=== PATIENT | female | born 1970 | race Caucasian/White ===

== ENCOUNTER 2017-12-03 20:25 | Emergency (ER) | payer OTHER ==
[2017-12-03] MEDS: KETOROLAC 60 MG INJ IM (22:52)
== END 2017-12-03 23:56 | disposition home or self-care (01) ==
LOC: FTE 20:25
DX: S50.02XA Contusion of left elbow, initial encounter (principal); W22.8XXA Striking against or struck by other objects, initial encounter; Y92.9 Unspecified place or not applicable; Z91.040 Latex allergy status
CPT/HCPCS: 73080; 73080-LT; 81025; 96372; 99284-25

== ENCOUNTER 2018-04-16 23:41 | Emergency (ER) | payer OTHER ==
[2018-04-17] MEDS: HYDROCODONE/APAP (5/325) TAB PO (00:23)
== END 2018-04-17 00:53 | disposition home or self-care (01) ==
LOC: FTE 23:41
DX: K08.89 Other specified disorders of teeth and supporting structures (principal)
CPT/HCPCS: 99283; Z7502

== ENCOUNTER 2018-08-04 23:52 | Emergency (ER) | payer OTHER | END 2018-08-05 03:48 | disposition home or self-care (01) | LOC: FTE 23:52 | DX: G56.03 Carpal tunnel syndrome, bilateral upper limbs (principal) | CPT/HCPCS: 29125; 99283-25 ==